=== PATIENT | female | born 1990 | race Caucasian/White ===

== ENCOUNTER 2022-10-28 11:06 | Emergency (ER) | payer BC, SELFPAY ==
[2022-10-28] VITALS (12 sets, daily range): BP systolic 102–124; BP diastolic 68–97; PULSE 71–90; RESP 15–18; TEMP 36.9–37.2; O2SAT 95–100
--- NOTE | 2022-10-28 11:15 | DI.CT_ITS ---
Exam(s) CT ABDOMEN PELVIS W EXAM: CT ABDOMEN PELVIS W CLINICAL HISTORY: rlq pain. TECHNIQUE: Imaging Protocol: Axial computed tomography images with coronal and sagittal reformatted images were created and reviewed CONTRAST MATERIAL: Intravenous: Omnipaque-350 100cc Oral: None COMPARISON: No exams were available for comparison FINDINGS: VISUALIZED LUNG BASES: No nodules nor pleural effusions evident. ABDOMEN: There is no ascites in the upper abdomen. LIVER: There are no focal hepatic lesions evident. No dilated intrahepatic ducts. GALLBLADDER/BILIARY: No obvious gallbladder pathology. CBD is not dilated. PANCREAS: No evidence of pancreatic mass nor dilatation of the pancreatic duct. SPLEEN: Spleen is not enlarged. No obvious intrasplenic lesions. Splenic and portal veins are paten t. ADRENALS: There are no significant adrenal masses. KIDNEYS:No cysts evident. No solid renal masses. No calculi nor hydronephrosis.. ABDOMINAL AORTA: Abdominal aorta is not enlarged. LYMPH NODES:There is no retroperitoneal nor paraaortic adenopathy. ABDOMINAL WALL: No evidence of significant anterior abdominal wall nor inguinal hernia. GI: There is no evidence of bowel obstruction. However, there is significant abnormal circumferentia l edema of the descending colon at and distal to the splenic flexure and also involving the mid-upper sigmoid. There is some mild surrounding fluid in in the upper left iliac fossa. Consistent with co litis. There is no evidence of significant sigmoid diverticular disease. No evidence of appendiciti s. PELVIS: GI: No evidence of appendicitis.No evidence of sigmoid diverticulitis. LYMPH NODES: There is no intrapelvic nor inguinal adenopathy. REPRODUCTIVE: Uterus and adnexal regions unremarkable. A corpus luteal cyst is noted in the right ov isaias which measures 1.3 x 1.4 cm. URINARY BLADDER: No calculi nor obvious masses evident OSSEOUS: No fractures and no significant osseous lesions. 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 Sacroiliac joints appear unremarkable. No evidence of sacroiliitis. IMPRESSION: 1. The main finding here is low-attenuation circumferential thickening of the colon, most evident at and distal to the splenic flexure and proximal-mid rectosigmoid. Differential diagnosis in this age group is most probably inflammatory bowel disease such as ulcerative colitis versus infectious etiolo gy. There is no significant diverticular disease in the colon. 2. Corpus luteal cyst incidentally noted in the right ovary. Measures 15 by 14 mm. 3. No evidence of appendicitis. RADIATION DOSE DELIVERED: 1,448.87mGy.cm Total DLP DATA REPOSITORY: All CT scans at this facility are submitted to the National Radiology Data Registry (NRDR) Dose Index Registry (DIR) with the [employer] (ACR). RADIATION OPTIMIZATION: All CT scans at this facility use at least one of these dose optimization te chniques: automated exposure control; mA and/or kV adjustment per patient size (includes targeted exa ms where dose is matched to clinical indication); or iterative reconstruction.
--- NOTE | 2022-10-28 11:23 | W.ED.GENAD ---
Discharge Plan Disposition Patient Disposition: Home Discharge Details Clinical Impression: Colitis, Hemorrhoids, internal Primary Care Provider: Brandon Torres ED Provider: Augustus Lopez Home Meds and New Rx's Prescriptions: No Action acetaminophen [Tylenol Ex Str Rapid Release] 500 mg Tablet 500 mg PO 4XD PRN (Reason: menstural pain) Discharge Instructions Additional Instructions: Please make sure you hydrate yourself well. You are found to have mild colitis and a small internal hemorrhoid. Advance diet as tolerated. Follow-up your primary care doctor as needed. Medical Decision Making Otherwise healthy 32-year-old presents to the emergency department with a chief complaint abdominal pain diarrhea bright red blood per rectum. She had an episode of nausea vomiting diarrhea illness approximately 1 days starting at 3 AM 2 days ago. Since then she has been having very little p.o. intake. She has had persistent abdominal pain more localized in the infraumbilical area. On exam she is mildly tender but certainly does not have any surgical signs. Found to have a leukocytosis of 14. Rest of the labs were within normal limits. Negative UA other than some mild ketones. CT scan showed inflammatory changes consistent with colitis. She has been afebrile. I do not believe that this is infectious in etiology. She will be treated with IV fluids emergency department and discharged home. HPI General Date/Time Provider Initiated Documentation: 10/28/22 11:22. HPI Narrative: 32-year-old lady presents to the emergency department for evaluation of right lower quadrant pain. She states the pain started at 3 AM overnight from Sunday to Sunday morning. The pain woke her up. It was associated with some nausea. She proceeded to vomiting profusely and then had profuse diarrhea. She went back to bed and spent the whole day yesterday essentially in her parents apartment. Decreased p.o. intake. This morning she woke up and had a bowel movement. She describes bowel movement as loose stool with dark color that were also associated with some bright red blood per rectum. No rectal pain. States that every time he has a bowel movement the pain in the right lower quadrant gets worse. Associate with chills. No quantified fevers. Denies any headaches. No chest pain. No shortness of breath. No back pain. No history of surgeries. Related Data Home Medications Medication Instructions Recorded Confirmed acetaminophen 500 mg tablet 500 mg PO 4XD PRN menstural pain 10/28/22 10/28/22 Allergies Allergy/AdvReac Type Severity Reaction Status Date / Time No Known Allergies Allergy Unverified 10/28/22 11:51 General Stated Complaint: Abd Prob FIORDALIZA: 3 Review of Systems Narrative: 10 point review of systems negative unless otherwise specified in the HPI. PFSH All Active Problems (Updated 10/28/22 @ 14:00 by Augustus Lopez MD) Colitis (Acute) Hemorrhoids, internal (Acute) Social History Smoking/Tobacco Use Status: Never Smoking risk assessment performed?: Yes Do you feel safe at home: No Do you feel safe in your relationship?: No Exam Narrative Exam Narrative: Awake alert [place] x3 calm no acute distress high BMI PERRLA EOMI MMM Supple neck Chest clear to auscultation bilaterally Heart regular rhythm and rate Abdomen soft distended discomfort right lower quadrant no CVAT Skin normal Neuro 2-12 grossly intact normal gait strength 5/5 bilaterally Psych mild anxiety. Course Vital Signs Vital signs: Vital Signs Temperature 36.9 C 10/28/22 11:13 Pulse 90 10/28/22 11:13 Respiratory Rate 15 10/28/22 11:13 Blood Pressure 124/97 H 10/28/22 11:13 Pulse Oximetry 96 10/28/22 11:13 Temperature 36.9 C 10/28/22 11:13 Temperature Source Oral 10/28/22 11:13 Pulse 90 10/28/22 11:13 Respiratory Rate 15 10/28/22 11:13 Blood Pressure 124/97 H 10/28/22 11:13 Blood Pressure Position Sitting 10/28/22 11:13 Pulse Oximetry 96 10/28/22 11:13 Oxygen Delivery Method Room Air 10/28/22 11:13 Oxygen Flow Rate 0 10/28/22 11:13 Pain Level 4 10/28/22 11:19 Procedures Other Description: Endoscopy. Patient underwent anoscopy with aviation boatswain's mate at the bedside. Her significant other was also at bedside. No external hemorrhoids. Patient did have 1 internal hemorrhoid that was nonbleeding. No fissures.
[2022-10-28 11:43] LABS: Abs Immature Grans 0.05 10^3/uL (0.0-0.06); Absolute Basophil Count 0.03 10^3/uL (0.0-0.2); Absolute Monocyte Count 0.71 10^3/uL (0.1-0.8); Basophils % 0.2; Eosinophils % 0.7; HCT 43.6 % (36.0-46.0); HGB 14.9 g/dL (11.2-15.7); Immature Grans % 0.3; Lymphocytes % 12.3; MCH 30.8 pg (27.0-33.0); MCHC 34.2 % (32.0-36.0); MCV 90 fL (80-95); Monocytes % 4.8; Neutrophils % 81.7; Platelet Count 234 10^3/uL (130-400); RBC 4.84 10^6/uL (3.93-5.22); RDW 12.4 % (11.7-14.6); RDW-SD 41.1 fL; WBC 14.82 10^3/uL (4.4-10.8)
[2022-10-28] MEDS: Lactated Ringers 1,000 ML 1000 ML IV (11:43)
[2022-10-28 11:46] LABS: Absolute Lymphocyte Count 1.82 10^3/uL (1.2-3.4); Absolute Neutrophil Count 12.11 10^3/uL (1.2-6.7)
[2022-10-28 12:02] LABS: ALT 23 U/L (14-59); AST 15 U/L (15-37); Albumin 4.1 g/dL (3.4-5.0); Alkaline Phosphatase 68 U/L (46-116); Anion Gap 10.3 mmol/L (3-11); BUN 12 mg/dL (7-18); Bilirubin, Total 0.6 mg/dL (0.2-1.0); CO2 26.7 mmol/L (21.0-32.0); CREATININE 0.9 mg/dL (0.55-1.02); Calcium 9.3 mg/dL (8.5-10.1); Chloride 102 mmol/L (98-107); Estimated GFR 86.57 (mL/min/1.73m2); Glucose 106 mg/dL (74-106); Potassium 3.5 mmol/L (3.5-5.1); Sodium 139 mmol/L (136-145); Total Protein 8.3 g/dL (6.4-8.2)
[2022-10-28 12:44] LABS: Bilirubin Negative (Negative); Blood Negative (Negative); Clarity Clear (Clear); Glucose Negative (Negative); Ketones Trace mg/dL (Negative); Leukocyte Esterase Negative (Negative); Nitrite Negative (Negative); Urobilinogen 0.2 mg/dL (Up to 0.2)
[2022-10-28] MEDS: Omnipaque 350 MG/ML 100 ML BTL IJ (12:53)
[2022-10-28] MEDS: Normal Saline Flush 10 ML SYR IVP (12:53)
[2022-10-28] MEDS: Normal Saline - Diluent 50 ML VIAL IJ (12:54)
--- NOTE | 2022-10-28 13:17 | DI.VRAD_ITS ---
PROCEDURE INFORMATION: Exam: CT Abdomen And Pelvis With Contrast Exam date and time: 10/28/2022 12:54 PM Age: 32 years old Clinical indication: Abdominal pain; Localized; Right lower quadrant (rlq); Patient HX: Rlq pain TECHNIQUE: Imaging protocol: Computed tomography of the abdomen and pelvis with contrast. Contrast material: OMNIPAQUE 350; Contrast volume: 100 ml; Contrast route: INTRAVENOUS (IV); COMPARISON: No relevant prior studies available. FINDINGS: Liver: Normal. No mass. Gallbladder and bile ducts: Normal. No calcified stones. No ductal dilation. Pancreas: Normal. No ductal dilation. Spleen: Normal. No splenomegaly. Adrenal glands: Normal. No mass. Kidneys and ureters: Normal. No hydronephrosis. Stomach and bowel: Low-attenuation bowel wall thickening is seen throughout the colon consistent with colitis. It is most severe in the descending colon and proximal rectosigmoid. Differential diagnosis includes infectious and inflammatory etiologies.. Appendix: Normal appendix Intraperitoneal space: Inflammatory changes in fluid in the left paracolic gutter. Mild amount of free fluid in the pelvis Vasculature: Unremarkable. No abdominal aortic aneurysm. Lymph nodes: Unremarkable. No enlarged lymph nodes. Urinary bladder: Unremarkable as visualized. Reproductive: Unremarkable as visualized. 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 Soft tissues: Unremarkable. IMPRESSION: Low-attenuation bowel wall thickening is seen throughout the colon consistent with colitis. It is most severe in the descending colon and proximal rectosigmoid. Differential diagnosis includes infectious and inflammatory etiologies.. Dictated and Authenticated by: Rand Menendez MD. Ordering:LANEY Coffman MD
[2022-10-28] MEDS: Normal Saline 1,000 ML 1000 ML IV (13:52)
== END 2022-10-28 15:19 | disposition home or self-care (01) ==
PROVIDERS: Emergency Provider Emergency Medicine; PCP Family Medicine
DX: K52.9 Noninfective gastroenteritis and colitis, unspecified (principal); K64.8 Other hemorrhoids; D72.829 Elevated white blood cell count, unspecified; F41.9 Anxiety disorder, unspecified
CPT/HCPCS: 80053; 81025; 96360; 99285; 46600; 74177; 81003; 85025; 99284; J3490

== ENCOUNTER 2023-07-13 10:38 | Emergency (ER) | payer OTHER, BC, SELFPAY ==
[2023-07-13 10:43] VITALS: BP 162/84; PULSE 78; RESP 18; TEMP 36.6; O2SAT 99
--- NOTE | 2023-07-13 11:33 | W.ED.GENAD ---
Discharge Plan Disposition Patient Disposition: Home Discharge Details Clinical Impression: Moderate right ankle sprain Primary Care Provider: Unknown,Unknown ED Provider: Bert Lake Home Meds and New Rx's Prescriptions: Continued acetaminophen 500 mg Tablet 500 mg PO 4XD PRN (Reason: menstural pain) Discharge Instructions Instructions: Ankle Sprain (ED) Additional Instructions: Use ankle stabilizer over the next 2 weeks. Use crutches and weight-bear as tolerated. Avoid activities that worsen pain. Please take ibuprofen over the counter. Take 600mg by mouth every 6 hours as needed for pain. Please contact your primary care physician to arrange follow-up. Return to the ER immediately for any worsening or new concerning symptoms. If pain does not improve as expected and discussed over the next 1 to 2 weeks, please follow-up with orthopedics. Referrals: [facility] [Provider Group] Medical Decision Making 33-year-old female here with inversion injury to left right ankle that occurred yesterday. Patient is tender posterior lateral ankle. X-ray of the ankle was interpreted by radiology: Lateral soft tissue swelling. No acute fractures present. The ankle mortise is normally aligned. Plan for ankle stabilizer and crutches. Patient notes she has crutches at home to use. Usual customary discharge instructions reviewed with the patient. HPI General Mode of arrival: ambulatory. Date/Time Provider Initiated Documentation: 07/13/23 11:07. Limitations to Documentation: no limitations. Information obtained by: patient. HPI Narrative: 33-year-old female presents with chief complaint of right ankle pain. Patient notes yesterday she was walking down a step at work and inverted her right ankle. She experienced a popping sensation during the fall. She has persistent pain in her posterior lateral ankle since the fall. Related Data Home Medications Medication Instructions Recorded Confirmed acetaminophen 500 mg tablet 500 mg PO 4XD PRN menstural pain 10/28/22 07/13/23 Allergies Allergy/AdvReac Type Severity Reaction Status Date / Time No Known Allergies Allergy Unverified 07/13/23 10:47 General Stated Complaint: Orthopedic FIORDALIZA: 4 Review of Systems Musculoskeletal Musculoskeletal: Reports as per HPI [facility] All Active Problems (Updated 07/13/23 @ 12:24 by Bert Lake MD) Moderate right ankle sprain (Acute) Social History Smoking/Tobacco Use Status: Never Smoking risk assessment performed?: Yes Alcohol Intake: current Alcohol Intake frequency: holidays/special occasions only Drug use: Daily Substance use type: marijuana Housing: house Do you feel safe at home: Yes Do you feel safe in your relationship?: Yes Exam Const General: cooperative and no acute distress Cardio Rate: regular rate and not tachycardic Rhythm: regular rhythm Neuro General: patient alert and patient awake Extrem Right lower extremity: lower leg Details: normal to inspection; no tenderness, ankle Details: tenderness Location: posteriorly; not of the achilles tendon and other (Achilles tendon normal); no ecchymosis and foot Details: normal capillary refill and toes with normal ROM; no tenderness Course Vital Signs Vital signs: Vital Signs Temperature 36.6 C 07/13/23 10:43 Pulse 78 07/13/23 10:43 Respiratory Rate 18 07/13/23 10:43 Blood Pressure 162/84 H 07/13/23 10:43 Pulse Oximetry 99 07/13/23 10:43 Temperature 36.6 C 07/13/23 10:43 Temperature Source Temporal Artery Scan 07/13/23 10:43 Pulse 78 07/13/23 10:43 Respiratory Rate 18 07/13/23 10:43 Respiratory Effort Normal, Non-Labored 07/13/23 10:48 Blood Pressure 162/84 H 07/13/23 10:43 Blood Pressure Position Sitting 07/13/23 10:43 Pulse Oximetry 99 07/13/23 10:43 Oxygen Delivery Method Room Air 07/13/23 10:43 Oxygen Flow Rate 0 07/13/23 10:43 Pain Level 8 07/13/23 10:57 PAWSS Have you Been Recently Intoxicated or Drunk Within the Last 30 days?: No Have you Ever Experienced Previous Episodes of Alcohol Withdrawal?: No Have you ever Experienced Withdrawal Seizures?: No Have you ever Experienced Delirium Tremens(DT)s?: No Have you ever undergone Alcohol Rehabilitation Treatment (i.e, inpt ot outpatient treatment programs)?: No Have you ever Experienced Blackouts?: No Have you ever Combined Alcohol with other Downers within the last 90 days?: No Have you ever Combined Alcohol with any other Substance of Abuse during the last 90 days?: No Positive Blood Alcohol level on Presentation? [PCS.BAL]: No Evidence of Increased Autonomic Activity (i.e. HR>120, tremor, sweating, agitation, nausea)?: No Result: 0
--- NOTE | 2023-07-13 11:40 | DI.RAD_ITS ---
Exam(s) XR ANKLE RT COMPLETE EXAM: XR ANKLE RT COMPLETE CLINICAL HISTORY: inversion injury, pain post lat ankle. TECHNIQUE: 2D digital imaging was performed. Three views. COMPARISON: No exams were available for comparison FINDINGS: BONES: No acute fracture is present. No bony destructive lesion is seen. JOINTS: The ankle mortise is normally aligned. SOFT TISSUE: Swelling around lateral malleolus. IMPRESSION: Lateral soft tissue swelling. DATA REPOSITORY: RADIATION DOSE DELIVERED:
[2023-07-13 12:29] VITALS: BP 110/74; PULSE 72; RESP 14; O2SAT 98
== END 2023-07-13 12:31 | disposition home or self-care (01) ==
PROVIDERS: Emergency Provider Student in an Organized Health Care Education/Training Program
DX: S93.401A Sprain of unspecified ligament of right ankle, initial encounter (principal); X50.1XXA Overexertion from prolonged static or awkward postures, initial encounter; Y93.01 Activity, walking, marching and hiking; Y92.89 Other specified places as the place of occurrence of the external cause; M25.561 Pain in right knee
CPT/HCPCS: 99283; 73610